=== PATIENT | male | born 1960 | race Caucasian/White ===

== ENCOUNTER → 2017-08-29 | Outpatient (CLI) | payer BC | END | disposition home or self-care (01) | LOC: CVU 13:35 | PROVIDERS: ATTEND Internal Medicine Cardiovascular Disease | DX: I10 Essential (primary) hypertension (principal); E78.5 Hyperlipidemia, unspecified; E11.9 Type 2 diabetes mellitus without complications; I25.2 Old myocardial infarction | CPT/HCPCS: 93306 ==

== ENCOUNTER 2017-12-21 08:14 | Day surgery (SDC) | payer BC ==
[~2017-12-21] VITALS: Ht 195.6 cm; Wt 111.4 kg
[2017-12-21 08:47] VITALS: BP 136/89
[2017-12-21] MEDS ORDERED: METO50TA82 PO (08:58)
[2017-12-21] MEDS ORDERED: AMLO5TAB2 PO (08:58)
[2017-12-21] MEDS ORDERED: CLOP75TA PO (08:58)
[2017-12-21] MEDS ORDERED: CHOL2000 PO (08:58)
[2017-12-21] MEDS ORDERED: LOSA25TA5 PO (08:58)
[2017-12-21] MEDS ORDERED: METF500T4 PO (08:58)
[2017-12-21] MEDS ORDERED: ASPI-496 PO (08:58)
[2017-12-21] MEDS ORDERED: ATOR40TA PO (08:58)
[2017-12-21] MEDS ORDERED: FENTANYL PF 100 MCG/2ML ONE (10:26)
[2017-12-21] MEDS ORDERED: MIDAZOLAM 1 MG/ML, 5ML ONE (10:26)
[2017-12-21] MEDS ORDERED: NITROGLYCERIN 5 MG/ML, 10ML ONE (10:27)
[2017-12-21] MEDS ORDERED: LIDOCAINE/PF 1%, 30ML ONE (10:27)
== END 2017-12-21 15:20 ==
LOC: CACL 08:14
PROVIDERS: ATTEND Internal Medicine Cardiovascular Disease
DX: I25.10 Atherosclerotic heart disease of native coronary artery without angina pectoris (principal); I10 Essential (primary) hypertension; E11.9 Type 2 diabetes mellitus without complications; E78.2 Mixed hyperlipidemia; I25.2 Old myocardial infarction; Z79.82 Long term (current) use of aspirin; Z98.61 Coronary angioplasty status
CPT/HCPCS: 93458; 99156; C1760; C1769; C1894; J2250; J3010; J3490; Q9967

== ENCOUNTER → 2020-01-09 | Outpatient (CLI) | payer BC ==
[~2020-01-09] MED LIST: AMLO-150 PO; ASPI-496 PO; ATOR40TA PO; CHOL2000 PO; CLOP75TA PO; LOSA25TA25 PO; METF500T17 PO; METO50TA82 PO
== END | disposition home or self-care (01) ==
LOC: CFH 08:06
PROVIDERS: ATTEND Internal Medicine Cardiovascular Disease
DX: I25.10 Atherosclerotic heart disease of native coronary artery without angina pectoris (principal); R07.9 Chest pain, unspecified
CPT/HCPCS: 78452; 93017; A9502

== ENCOUNTER 2020-03-23 22:46 | Observation (INO) | payer BC ==
[~2020-03-23] VITALS: Ht 195.6 cm; Wt 105.2 kg
[2020-03-23] MEDS ORDERED: ACETAMINOPHEN 500 MG TABLET PO ONE (23:00)
[2020-03-23] MEDS ORDERED: SODIUM CHLORIDE FLUSH 10ML SYR IVF ONE (23:00)
[2020-03-23] MEDS ORDERED: SODIUM CHLORIDE 0.9% 1,000ML IVBOLUS ONE (23:00)
--- NOTE | 2020-03-23 23:03 | NUR ---
GABO CHAVEZ FROM HOME FOR REPRODUCABLE CP STARTING AT 1600 WHILE WORKING, PT REPORTS INTERMITTENT AND IS WORSE WITH DEEP BREATHING REPORTS FEELING LIKE LUNGS WITH FLUID. PAIN IS NON RADIATING, 1/10 ON ARRIVAL. LS CTA. NO N/V, NO SOB. HAS LOW GRADE TEMP, SLIGHT DRY TICKLE COUGH. EKG DONE ON ARRIVAL, MONITOR, LABS, PCXR. NSR NO ECTOPY. RESTING COMFORTABLY WILL CONTINUE TO MONITOR. AIDET PROVIDED. CALL HERNANDEZ IN REACH.
[2020-03-23] MEDS ORDERED: ACETAMINOPHEN 500 MG TABLET ONE (23:07)
[2020-03-23 23:12] LABS: BASOPHILS # (AUTO) 0.04 x10^3/uL (0-0.1); BASOPHILS % (AUTO) 1 % (0-1); EOSINOPHILS % (AUTO) 1 % (1-7); LYMPHOCYTES # (AUTO) 1.15 x10^3/uL (1-3.4); LYMPHOCYTES % (AUTO) 13 % (22-44); MD NO; MEAN CORPUSCULAR HEMOGLOBIN 30.9 pg (27.5-34.5); MEAN CORPUSCULAR HGB CONC 32.6 g/dL (33.2-36.2); MEAN CORPUSCULAR VOLUME 94.9 fL (81-97); MEAN PLATELET VOLUME 7.9 fL (7.4-10.4); MONOCYTES # (AUTO) 0.99 x10^3/uL (0.2-0.8); MONOCYTES % (AUTO) 11 % (2-9); NEUTROPHILS # (AUTO) 6.82 x10^3/uL (1.8-6.8); NEUTROPHILS % (AUTO) 75 % (42-75); PLATELET COUNT 195 x10^3/uL (130-400); RED BLOOD COUNT 4.25 x10^6/uL (4.38-5.82); RED CELL DISTRIBUTION WIDTH 14.6 % (9.4-14.8)
[2020-03-23 23:21] LABS: ALANINE AMINOTRANSFERASE 19 U/L (12-78); ALBUMIN 3.3 g/dL (3.4-5.0); ANION GAP 6 mmol/L (5-15); CALCIUM 9.3 mg/dL (8.5-10.1); CHLORIDE 107 mmol/L (98-107)
[2020-03-23 23:25] LABS: ALKALINE PHOSPHATASE 85 U/L (45-117); BILIRUBIN,TOTAL 0.4 mg/dL (0.2-1.0); CREATININE 0.81 mg/dL (0.7-1.3); TOTAL PROTEIN 7.2 g/dL (6.4-8.2); TROPONIN I < 0.015 ng/mL (0.000-0.045)
--- NOTE | 2020-03-23 23:25 | NUR ---
IVF INITIATED MEDICATED PER ORDER WITH TYLENOL. PT APPEARS COMFORTABLE AND REPORTS NO PAIN AT THIS TIME. REMAINS NSR WITH NO ST ELEVATION OR ECTOPY. CALLED PER PT REQUEST. AIDET PROVIDED. WILL CONTINUE TO MONITOR.
--- NOTE | 2020-03-24 00:19 | NUR ---
NO CHANGE IN ASSESSMENT, REMAINS NSR NO ECTOPY. VSS. NO CP. REPEAT TROP TO BE DONE. WILL CONTINUE TO MONITOR. AIDET PROVIDED.
--- NOTE | 2020-03-24 01:47 | NUR ---
RESTING COMFORTABLY, NO CP, NO SOB, VSS. NSR NO EKG CHANGES. REPEAT TROP AT 0200. AIDET PROVIDED.
--- NOTE | 2020-03-24 02:00 | NUR ---
#2 TROP DRAWN BY LAB. AIDET PROVIDED. NAD, WILL CONTINUE MONITORING.
[2020-03-24 02:25] LABS: TROPONIN I < 0.015 ng/mL (0.000-0.045)
--- NOTE | 2020-03-24 03:03 | NUR ---
UPON DC PT REPORTS NOT BEING REINFORMED BY ERP RE DISPO AND HE HAS CONCERNS HED LIKE TO DISCUSS WITH ERP. PT STATES WHEN HE NOW MOVES LEGS UP OR SITS UP THE SOB/CHEST PAIN SEEMS TO RETURN AND HE DOESN'T FEEL HE CAN EVEN WALK TO GO HOME. VSS, NO CHANGE IN TELE, O2 SAT 95%RA. RR 18. INFORMED CURRENT ERP WHO WILL SPEAK WITH PT.
[2020-03-24] MEDS ORDERED: ONDANSETRON 2MG/ML, 2ML IVPush ONE (03:30)
--- NOTE | 2020-03-24 03:30 | NUR ---
RE-EVAL BY CURRENT ERP, PT SENT TO CTA.
[2020-03-24] MEDS ORDERED: ONDANSETRON 2MG/ML, 2ML ONE (03:39)
[2020-03-24] MEDS ORDERED: MORPHINE SULFATE 4 MG/ML, 1ML ONE ×2 (03:39→04:18)
[2020-03-24] MEDS ORDERED: OMNIPAQUE 350 MG/ML, 100ML BOTTLE ONE (03:46)
[2020-03-24] MEDS: MORPHINE SULFATE 4 MG/ML, 1ML IVPush PRN ×2 (03:50→04:21)
--- NOTE | 2020-03-24 03:50 | NUR ---
BACK FROM CT, MOANING IN PAIN, RR 26 STATES "I FEEL LIKE I CAN'T BREATHE AND MY CHEST PAIN HAS COME BACK 03/20". O2 SAT 92%RA. PLACED ON 3L O2, STAT EKG DONE, MEDICATED PER ORDER. Addendum: 03/24/20 at 0359 by [email or web address] 0359: APPEARS MORE COMFORTABLE, RR 20, O2 SATS 100%RA, REPORTS STILL FEELING SOB, CP DOWN TO 12/18.
[2020-03-24] MEDS ORDERED: ONDANSETRON 2MG/ML, 2ML IVPush PRN ×2 (04:00→04:30)
[2020-03-24] MEDS ORDERED: MORPHINE SULFATE 4 MG/ML, 1ML IVPush PRN (04:00)
--- NOTE | 2020-03-24 04:23 | NUR ---
REMEDICATED FOR MID STERNAL NON RADIATING PLEURITIC TYPE CP/SOB. VSS AWAITING ADMIT. AIDET PROVIDED.
[2020-03-24] MEDS ORDERED: NITROGLYCERIN SINGLE TAB 0.4 MG SL PRN (04:30)
[2020-03-24] MEDS ORDERED: morphine SULFATE 10 MG/ML, 1ML IV PRN (04:30)
[2020-03-24] MEDS ORDERED: NITROGLYCERIN SINGLE TAB 0.4 MG SL ONE (04:34)
[2020-03-24] MEDS ORDERED: KETOROLAC 30 MG/1 ML ONE (04:37)
--- NOTE | 2020-03-24 04:40 | NUR ---
HOSPITALIST AT BEDSIDE WITH VERBAL ORDER FOR 30MG TORADOL IVP.
[2020-03-24 05:05] LABS: TROPONIN I < 0.015 ng/mL (0.000-0.045)
--- NOTE | 2020-03-24 05:06 | NUR ---
REPORT TO JEAN SUAREZ RN. ALL BELONGINGS TX WITH PT. VSS.
[2020-03-24 05:33] VITALS: BP 106/71
[2020-03-24] MEDS ORDERED: B12 PO (05:46)
[2020-03-24] MEDS ORDERED: KETOROLAC 30 MG/1 ML IV ONE (06:00)
[2020-03-24 07:07] VITALS: BP 109/72
[2020-03-24] MEDS: ASPIRIN 81 MG TABLET EC PO SCH (08:48)
[2020-03-24] MEDS: SODIUM CHLORIDE FLUSH 10ML SYR IVF SCH ×2 (08:48→20:13)
[2020-03-24] MEDS: AMLODIPINE 10 MG TAB PO SCH (08:48)
[2020-03-24] MEDS: metFORMIN 500 MG TABLET PO SCH ×2 (08:48→20:12)
[2020-03-24] MEDS: LOSARTAN 25MG TABLET PO SCH (08:48)
[2020-03-24] MEDS: CLOPIDOGREL 75 MG TABLET PO SCH (08:49)
[2020-03-24] MEDS: METOPROLOL TARTRATE 50 MG TAB PO SCH ×2 (08:49→20:13)
[2020-03-24] MEDS ORDERED: COLC0.6T37 PO (09:04)
[2020-03-24 13:14] VITALS: BP 114/7
[2020-03-24 13:23] LABS: TROPONIN I < 0.015 ng/mL (0.000-0.045)
[2020-03-24 13:55] LABS: HCT (SEDRATE) 39.9 % (39.2-51.8)
[2020-03-24 20:10] VITALS: BP 108/72
[2020-03-24] MEDS: COLCHICINE 0.6 MG CAPSULE PO SCH (20:12)
[2020-03-24] MEDS ORDERED: ATORVASTATIN 80 MG TABLET PO SCH (21:00)
[2020-03-25 01:01] VITALS: BP 110/72
[2020-03-25 06:01] LABS: BASOPHILS # (AUTO) 0.03 x10^3/uL (0-0.1); BASOPHILS % (AUTO) 0 % (0-1); EOSINOPHILS # (AUTO) 0.16 x10^3/uL (0-0.4); EOSINOPHILS % (AUTO) 2 % (1-7); LYMPHOCYTES % (AUTO) 20 % (22-44); MD NO; MEAN CORPUSCULAR HGB CONC 32.9 g/dL (33.2-36.2); MEAN CORPUSCULAR VOLUME 94.3 fL (81-97); MEAN PLATELET VOLUME 8.4 fL (7.4-10.4); MONOCYTES # (AUTO) 0.97 x10^3/uL (0.2-0.8); MONOCYTES % (AUTO) 14 % (2-9); NEUTROPHILS # (AUTO) 4.55 x10^3/uL (1.8-6.8); NEUTROPHILS % (AUTO) 64 % (42-75); PLATELET COUNT 185 x10^3/uL (130-400); RED BLOOD COUNT 3.92 x10^6/uL (4.38-5.82); RED CELL DISTRIBUTION WIDTH 14.8 % (9.4-14.8)
[2020-03-25 06:07] LABS: ANION GAP 7 mmol/L (5-15); CALCIUM 9.3 mg/dL (8.5-10.1); CHLORIDE 108 mmol/L (98-107)
[2020-03-25 06:08] LABS: CREATININE 0.72 mg/dL (0.7-1.3)
[2020-03-25 07:16] VITALS: BP 107/70
[2020-03-25] MEDS: AMLODIPINE 10 MG TAB PO SCH (09:00)
[2020-03-25] MEDS: LOSARTAN 25MG TABLET PO SCH (09:00)
[2020-03-25] MEDS: SODIUM CHLORIDE FLUSH 10ML SYR IVF SCH (09:11)
[2020-03-25] MEDS: CLOPIDOGREL 75 MG TABLET PO SCH (09:11)
[2020-03-25] MEDS: COLCHICINE 0.6 MG CAPSULE PO SCH (09:11)
[2020-03-25] MEDS: METOPROLOL TARTRATE 50 MG TAB PO SCH (09:11)
[2020-03-25] MEDS: ASPIRIN 81 MG TABLET EC PO SCH (09:11)
[2020-03-25] MEDS: metFORMIN 500 MG TABLET PO SCH (09:12)
[2020-03-25 12:19] VITALS: BP 114/75
[2020-03-25] MEDS ORDERED: COLC0.6T37 PO (12:42)
== END 2020-03-25 15:13 | disposition home or self-care (01) ==
LOC: ED 23:40 → EDIP 03-24 04:20 → 4EST 03-24 05:24
PROVIDERS: ADMIT Family Medicine; ATTEND Internal Medicine
DX: I30.9 Acute pericarditis, unspecified (principal); Z20.828 Contact with and (suspected) exposure to other viral communicable diseases; R50.9 Fever, unspecified; R05 Cough; I25.110 Atherosclerotic heart disease of native coronary artery with unstable angina pectoris; E11.9 Type 2 diabetes mellitus without complications; I10 Essential (primary) hypertension; J98.11 Atelectasis; M10.9 Gout, unspecified; I25.2 Old myocardial infarction; Z79.899 Other long term (current) drug therapy; Z79.02 Long term (current) use of antithrombotics/antiplatelets; Z79.82 Long term (current) use of aspirin
CPT/HCPCS: 36415; 71045; 71275; 80048; 80053; 83605; 84484; 85025; 85651; 86140; 87040; 87635; 93005; 93306; 96374; 96375; 96376; 99285; G0378; J2270; J2405; J7030; Q9967

== ENCOUNTER 2020-04-04 11:13 | Emergency (ER) | payer BC ==
[~2020-04-04] VITALS: Ht 195.6 cm; Wt 100.0 kg
[~2020-04-04 11:13] MED LIST changes: +B12 PO; +COLC0.6T37 PO
[2020-04-04 11:16] VITALS: BP 158/77
--- NOTE | 2020-04-04 11:31 | NUR ---
PT IS A 60 YO MALE WITH ABD PAIN. PT STATES HE WAS LIFTING A 20 LB BOX AND FELT A "TWINGE". PER PT HE HAS INTERMITTENT STABBING PAIN, BUT NO CONSTANT PAIN. PAIN IS IN THE RUQ. PT ALSO STATES HE HAD PERICARDITIS LAST WEEK. PER PT NO ISSUES URINATING, DENIES BLOOD IN URINE.
== END 2020-04-04 12:11 | disposition home or self-care (01) ==
LOC: ED 12:10
DX: S39.011A Strain of muscle, fascia and tendon of abdomen, initial encounter (principal); X58.XXXA Exposure to other specified factors, initial encounter; Y93.89 Activity, other specified; Y92.89 Other specified places as the place of occurrence of the external cause; Y99.8 Other external cause status
CPT/HCPCS: 99283

== ENCOUNTER → 2020-07-21 | Outpatient (CLI) | payer BC | END | disposition home or self-care (01) | LOC: CVU 09:14 | PROVIDERS: ATTEND Internal Medicine Cardiovascular Disease | DX: I08.1 Rheumatic disorders of both mitral and tricuspid valves (principal); I31.9 Disease of pericardium, unspecified; I25.10 Atherosclerotic heart disease of native coronary artery without angina pectoris; I10 Essential (primary) hypertension; I25.2 Old myocardial infarction; E11.9 Type 2 diabetes mellitus without complications | CPT/HCPCS: 93306 ==